=== PATIENT | female | born 1980 | race Caucasian/White ===

== ENCOUNTER 2016-12-08 12:41 | Emergency (ER) | payer MEDICAID, OTHER ==
[~2016-12-08] VITALS: Ht 162.6 cm; Wt 102.0 kg
[2016-12-08 12:44] VITALS: Ht 162.6 cm; Wt 102.0 kg
[2016-12-08] MEDS ORDERED: METHYLPREDNISOLONE 125 MG INJ IV STA (14:01)
[2016-12-08] MEDS ORDERED: ALBUTEROL 0.5% (NEB) 2.5 MG/0.5 ML AMP INH STA (14:01)
[2016-12-08] MEDS ORDERED: IPRATROPIUM (NEB) 0.5 MG/2.5 ML AMP NEB STA (14:01)
[2016-12-08] MEDS ORDERED: ALBUTEROL 0.5% (NEB) 2.5 MG/0.5 ML AMP NEB STA (14:01)
[2016-12-08] MEDS ORDERED: ONDANSETRON 4 MG INJ IV STA (14:21)
[2016-12-08 14:36] LABS: ADD SCAN DIFF NO
[2016-12-08 14:41] LABS: BASOPHIL # 0.1 10^3/ul (0.0-0.1); BASOPHILS % 0.7 % (0.0-2.0); EOSINOPHILS # 1.5 10^3/ul (0.0-0.5); EOSINOPHILS % 15.3 % (0.0-7.0); HEMATOCRIT 40.9 % (37.0-47.0); HEMOGLOBIN 13.7 g/dl (12.0-16.0); LYMPHOCYTES # 2.2 10^3/ul (0.8-2.9); LYMPHOCYTES % 23.2 % (15.0-51.0); MEAN CORPUSCULAR HEMOGLOBIN 29.5 pg (29.0-33.0); MEAN CORPUSCULAR HGB CONC 33.5 g/dl (32.0-37.0); MEAN PLATELET VOLUME 10.1 fl (7.4-10.4); MONOCYTE # 0.3 10^3/ul (0.3-0.9); MONOCYTES % 2.7 % (0.0-11.0); NEUTROPHIL # 5.5 10^3/ul (1.6-7.5); NEUTROPHILS % 57.5 % (39.0-77.0); PLATELET COUNT 324 10^3/UL (140-415); RED BLOOD COUNT 4.65 10^6/ul (4.20-5.40); RED CELL DISTRIBUTION WIDTH 13.2 % (11.5-14.5); WHITE BLOOD COUNT 9.6 10^3/ul (4.8-10.8)
[2016-12-08 14:53] LABS: CALCIUM 9.1 mg/dl (8.4-10.2); CREATININE 0.61 mg/dl (0.44-1.00); POTASSIUM 3.9 mmol/L (3.5-5.1)
[2016-12-08] MEDS ORDERED: HYDROCODONE/APAP (5/325) TAB PO ONE (16:00)
[2016-12-08] MEDS ORDERED: IBUPROFEN 600 MG TAB PO ONE (16:00)
--- NOTE | 2016-12-08 16:13 | RADRPT ---
PROCEDURE: Chest Radiograph. CLINICAL INDICATION: Shortness of breath TECHNIQUE: Single frontal chest radiograph. COMPARISON: None available FINDINGS: The cardiomediastinal silhouette is within normal limits. No infiltrate or effusion is seen. Th e bones are intact. IMPRESSION: 1. Unremarkable chest radiograph. RPTAT: KK .David Keyes MD, MD Date Time Electronically viewed and signed by .David Keyes MD, on 12/08/2016 16:13 .B/
[2016-12-08] MEDS ORDERED: PRED20TA PO (16:29)
[2016-12-08] MEDS ORDERED: HYDR-906 PO (16:29)
[2016-12-08] MEDS ORDERED: ALBU2.5V3 NEB (16:29)
[2016-12-08] MEDS ORDERED: ONDA8TAB14 PO (16:29)
[2016-12-08] MEDS ORDERED: AZIT250T94 PO (16:29)
--- NOTE | 2016-12-08 16:32 | ERD ---
ER Documentation Chief Complaint Date/Time DATE: 12/08/16 TIME: 16:30 Chief Complaint VOMITING,FEVER,CWP,STARTED LAST NIGHT HPI This 36-year-old female complains of vomiting and wheezing started yesterday. She has a history of asthma. She has a history of intubation. She may have had recent cough or URI the last few days. She has some pleuritic anterior chest wall pain and pleuritic upper back pain. She is using albuterol at home but is out of medication for her nebulizer. ROS All systems reviewed and are negative except as per history of present illness. Medications Home Meds Active Scripts Azithromycin* (Zithromax*) 250 Mg Tablet, 250 MG PO .ZPACK DIRECTED, #6 TAB TAKE 500 MG (2 TABS) THE FIRST DAY THEN 250 MG (1 TAB) DAYS 2-5 Prov:JOSE R APARICIO MD 12/08/16 Hydrocodone/Acetaminophen ([place] 5-325 Tablet) 1 Each Tablet, 1 TAB PO Q6H Y for PAIN, #7 TAB Prov:JOSE R APARICIO MD 12/08/16 Prednisone* (Prednisone*) 20 Mg Tab, 60 MG PO DAILY for 5 Days, TAB Prov:JOSE R APARICIO MD 12/08/16 Ondansetron (Ondansetron Odt) 8 Mg Tab.rapdis, 8 MG PO Q6H Y for NAUSEA AND/OR VOMITING, #8 TAB Prov:JOSE R APARICIO MD 12/08/16 Albuterol Sulfate* (Albuterol Sulfate* Neb) 0.083%-3 Ml Neb, 2.5 MG NEB Q4 Y for SHORTNESS OF BREATH, #30 EA Prov:JOSE R APARICIO MD 12/08/16 Allergies Allergies: Coded Allergies: No Known Drug Allergy (Verified Allergy, Unknown, 12/08/16) PMhx/Soc Medical and Surgical Hx: pt denies Surgical Hx Hx Respiratory Disorders: Yes (asthma) Hx Alcohol Use: No Hx Substance Use: No Hx Tobacco Use: No Smoking Status: Never smoker Physical Exam Vitals Vital Signs Date Time Temp Pulse Resp B/P Pulse Ox O2 Delivery O2 Flow Rate FiO2 12/08/16 15:27 91 19 96 21 12/08/16 14:23 85 20 96 21 12/08/16 12:44 97.4 94 18 147/91 97 Physical Exam Const: [] Alert, uncomfortable due to vomiting but no apparent distress. Head: Atraumatic Eyes: Normal Conjunctiva ENT: Normal External Ears, Nose and Mouth. Neck: Full range of motion..~ No meningismus. Resp: Wheezing diffusely without retractions or rales. Cardio: Regular rate and rhythm, no murmurs Abd: Soft, non tender, non distended. Normal bowel sounds Skin: No petechiae or rashes Back: No midline or flank tenderness Ext: No cyanosis, or edema Neur: Awake and alert Psych: Normal Mood and Affect Result Diagram: 12/08/16 1415 12/08/16 1415 Results 24 hrs Laboratory Tests Test 12/08/16 14:15 White Blood Count 9.610^3/ul Red Blood Count 4.6510^6/ul Hemoglobin 13.7g/dl Hematocrit 40.9% Mean Corpuscular Volume 88.0fl Mean Corpuscular Hemoglobin 29.5pg Mean Corpuscular Hemoglobin Concent 33.5g/dl Red Cell Distribution Width 13.2% Platelet Count 70490^3/UL Mean Platelet Volume 10.1fl Neutrophils % 57.5% Lymphocytes % 23.2% Monocytes % 2.7% Eosinophils % 15.3% Basophils % 0.7% Nucleated Red Blood Cells % 0.0/100WBC Neutrophils # 5.510^3/ul Lymphocytes # 2.210^3/ul Monocytes # 0.310^3/ul Eosinophils # 1.510^3/ul Basophils # 0.110^3/ul Nucleated Red Blood Cells # 0.010^3/ul Sodium Level 137mmol/L Potassium Level 3.9mmol/L Chloride Level 107mmol/L Carbon Dioxide Level 22mmol/L Anion Gap 12 Blood Urea Nitrogen 14mg/dl Creatinine 0.61mg/dl Glucose Level 140mg/dl Calcium Level 9.1mg/dl Current Medications Medications (Trade) Dose Ordered Sig/Torri Route PRN Reason Start Time Stop Time Status Last Admin Dose Admin Albuterol (Proventil 0.5% (Neb)) 10 mg ONCE STAT NEB 12/08/16 14:01 12/08/16 14:04 DC 12/08/16 15:25 Ipratropium Mather (Atrovent 0.02% (Neb)) 1.5 mg ONCE STAT NEB 12/08/16 14:01 12/08/16 14:04 DC 12/08/16 14:20 Albuterol (Proventil 0.5% (Neb)) 10 mg ONCE STAT INH 12/08/16 14:01 12/08/16 14:04 DC 12/08/16 14:20 Methylprednisolone Sodium Succinate (Solu-Medrol) 125 mg ONCE STAT IV 12/08/16 14:01 12/08/16 14:04 DC 12/08/16 14:20 Ondansetron HCl (Zofran Inj) 4 mg ONCE STAT IV 12/08/16 14:21 12/08/16 14:22 DC 12/08/16 14:25 Ibuprofen (Motrin) 600 mg ONCE ONCE PO 12/08/16 16:00 12/08/16 16:01 DC 12/08/16 15:37 Acetaminophen/ Hydrocodone Bitart ([place] (5/325)) 1 tab ONCE ONCE PO 12/08/16 16:00 12/08/16 16:01 DC 12/08/16 15:38 Procedures/MDM IV was obtained. Patient was given Solu-Medrol 125 mg IV. CBC and CMP normal. EKG: Rate/Rhythm: [Normal Sinus Rhythm] rate equals 83 QRS, ST, T-waves: [No changes consistent w/ acute ischemia] Impression: [No evidence of ischemia or arrhythmia]. Impression-normal EKG Chest X-ray 1V Interpreted by me: Soft Tissue: No acute abnormalities Bones: No acute abnormalities Mediastinum/Cardiac Silhouette/Lungs: [No acute abnormalities]. Impression- normal 1 view chest x-ray Patient was given continuous albuterol treatment and had improved breath sounds after observation treatment and normal saturation. Patient was also given Zofran form of grams IV. Patient was given [place] 5 mg by mouth for chest wall pain. Patient's signs and symptoms do not suggest PE, pneumonia, acute coronary syndrome, acute abdomen. She will discharged home with refills of albuterol, prednisone course as well as Zithromax and Zofran. She was given a short course of [place] for chest wall pain as well. Patient is advised to follow -up with primary doctor this week or return to the ER for new or worsening symptoms. The patient was stable with no new complaints during the ER course. Clinically, there is no current evidence to suggest meningitis, sepsis, acute abdomen, pneumonia, acute coronary syndrome, pulmonary embolism, or any other emergent condition appearing to require further evaluation or hospitalization. The patient should certainly return for any new or worsening symptoms per the aftercare instructions. They should otherwise follow-up with her primary care doctor for reevaluation this week. Departure Diagnosis: Primary Impression: Asthma Asthma severity: unspecified severity Asthma complication type: uncomplicated Qualified Code: J45.909 - Uncomplicated asthma, unspecified asthma severity Additional Impression: Vomiting Vomiting type: unspecified Vomiting Intractability: unspecified Nausea presence: unspecified Qualified Code: R11.10 - Vomiting, intractability of vomiting not specified, presence of nausea not specified, unspecified vomiting type Condition: Stable Patient Instructions: Asthma, Acute (Adult), Vomiting (6Y-Adult) Additional Instructions: Likely viral illness. Recheck for new or worsening symptoms with primary care doctor. JOSE R APARICIO MD Dec 08, 2016 16:32
[2016-12-08] MEDS ORDERED: ALBU18HF INHALATION (16:52)
[2016-12-08 16:53] VITALS: BP 135/68; PULSE 77; RESP 18; TEMP 98.5
== END 2016-12-08 16:55 | disposition home or self-care (01) ==
LOC: FTE 12:41
DX: J45.901 Unspecified asthma with (acute) exacerbation (principal); R11.10 Vomiting, unspecified; R07.89 Other chest pain
CPT/HCPCS: 71010; 80048; 85025; 93005; 94644; 94664; 96374; 96375; J2405; J2930; Z7502; Z7610